=== PATIENT | male | born 1945 | race Caucasian/White ===

== ENCOUNTER 2017-06-21 10:53 | Emergency (ER) | payer OTHER ==
[~2017-06-21] VITALS: Ht 175.3 cm; Wt 90.9 kg
[2017-06-21] MEDS ORDERED: SENN1TAB67 PO (11:14)
[2017-06-21] MEDS ORDERED: OMEP40CA6 PO (11:14)
[2017-06-21] MEDS ORDERED: METF500T4 PO (11:14)
[2017-06-21] MEDS ORDERED: AMLO5TAB2 PO (11:14)
[2017-06-21] MEDS ORDERED: ATEN25TA PO (11:14)
[2017-06-21] MEDS ORDERED: ATOR20TA PO (11:14)
[2017-06-21] MEDS ORDERED: DABI150C PO (11:14)
[2017-06-21] MEDS ORDERED: MORPHINE SULFATE 4 MG/ML, 1ML IVPush PRN (11:30)
[2017-06-21] MEDS ORDERED: SODIUM CHLORIDE FLUSH 10ML SYR IVF ONE (11:30)
[2017-06-21] MEDS ORDERED: SODIUM CHLORIDE 0.9% 1,000ML IVBOLUS ONE (11:30)
[2017-06-21 11:57] LABS: MEAN CORPUSCULAR HEMOGLOBIN 31.3 pg (27.5-34.5); MEAN CORPUSCULAR HGB CONC 34.3 g/dL (33.2-36.2); MEAN CORPUSCULAR VOLUME 91.1 fL (81-97); MEAN PLATELET VOLUME 10.8 fL (7.4-10.4); PLATELET COUNT 100 x10^3/uL (130-400); RED BLOOD COUNT 4.83 x10^6/uL (4.38-5.82); RED CELL DISTRIBUTION WIDTH 13.2 % (9.4-14.8)
[2017-06-21] MEDS ORDERED: PLEASE ENTER PATIENTS WEIGHT MC SCH (12:00)
[2017-06-21 12:03] LABS: ALBUMIN 2.7 g/dL (3.4-5.0); ANION GAP 10 mmol/L (5-15); CALCIUM 7.8 mg/dL (8.5-10.1); CHLORIDE 99 mmol/L (98-107)
[2017-06-21 12:04] LABS: CREATININE 1.08 mg/dL (0.7-1.3)
[2017-06-21] MEDS ORDERED: MORPHINE SULFATE 4 MG/ML, 1ML ONE (12:11)
[2017-06-21 12:22] LABS: BASOPHILS # (AUTO) 0.04 x10^3/uL (0-0.1); BASOPHILS % (AUTO) 0 % (0-1); EOSINOPHILS # (AUTO) 0.01 x10^3/uL (0-0.4); EOSINOPHILS % (AUTO) 0 % (1-7); LYMPHOCYTES # (AUTO) 1.06 x10^3/uL (1-3.4); LYMPHOCYTES % (AUTO) 9 % (22-44); MD SCAN; MONOCYTES # (AUTO) 2.17 x10^3/uL (0.2-0.8); MONOCYTES % (AUTO) 18 % (2-9); NEUTROPHILS # (AUTO) 8.83 x10^3/uL (1.8-6.8); NEUTROPHILS % (AUTO) 73 % (42-75)
[2017-06-21 12:30] LABS: CULTURE INDICATED? YES; MICROSCOPIC INDICATED
[2017-06-21] MEDS ORDERED: CEFTRIAXONE PMX 1GM/50ML 50 ML IV ONE (13:30)
[2017-06-21] MEDS ORDERED: CEFTRIAXONE PMX 1GM/50ML 50 ML ONE (14:01)
[2017-06-21 15:16] VITALS: BP 125/75
== END 2017-06-21 15:18 | disposition home or self-care (01) ==
LOC: ED 14:45
DX: S42.201A Unspecified fracture of upper end of right humerus, initial encounter for closed fracture (principal); W17.89XA Other fall from one level to another, initial encounter; Y93.89 Activity, other specified; Y92.89 Other specified places as the place of occurrence of the external cause; Y99.8 Other external cause status
CPT/HCPCS: 29105; 36415; 73030; 80048; 81001; 82040; 85025; 87077; 87086; 87186; 93005; 96361; 96365; 96375; 99285; J0696; J7030